=== PATIENT | female | born 1975 | race Caucasian/White ===

== ENCOUNTER 2020-09-14 20:39 | Emergency (ER) | payer SELFPAY ==
[2020-09-14 20:52] VITALS: TEMP 97.9; BMI 27.3
[2020-09-14] MEDS ORDERED: IBUPROFEN 400 MG TABLET (FP) PO ONE ×2 (21:29→21:32)
[2020-09-14] MEDS ORDERED: CYCLOBENZAPRINE HCL 10 MG TABLET (FP) PO ONE (22:50)
[2020-09-14] MEDS ORDERED: ACETAMINOPHEN 325 MG TABLET (FP) PO ONE (22:50)
[2020-09-14] MEDS ORDERED: CYCLOBENZAPRINE HCL 10 MG TABLET (FP) ONE (23:05)
[2020-09-14] MEDS ORDERED: ACETAMINOPHEN 325 MG TABLET (FP) ONE (23:05)
[2020-09-14 23:11] VITALS: BP 139/89; PULSE 92
== END 2020-09-14 23:15 | disposition home or self-care (01) ==
LOC: JER 20:39
DX: S39.011A Strain of muscle, fascia and tendon of abdomen, initial encounter (principal); Y99.8 Other external cause status
CPT/HCPCS: 71101-TC-LT-FY; 99283-25